=== PATIENT | male | born 1975 | race Caucasian/White ===

== ENCOUNTER 2023-05-24 20:36 | Emergency (ER) | payer BC ==
[2023-05-24 21:09] VITALS: TEMP 98.3
--- NOTE | 2023-05-24 21:12 | ED ---
General Adult HPI - General Source: patient, EMS Mode of arrival: EMS Limitations: no limitations <Tarsha Metzger - Last Filed: 05/24/23 21:13> <Luther Coronado - Last Filed: 05/25/23 03:11> - General Chief complaint: Abdominal Pain Stated complaint: abd pain Time Seen by Provider: 05/24/23 21:05 - History of Present Illness Initial comments: 48-year-old male presents to the emergency department chief complaint abdominal pain. He states that it is in the epigastric region and radiates to the left side. He states this started around 10 PM last night. This is associated with nausea without vomiting. He states that the pain comes in waves. He has not experienced pain like this in the past. He admits to occasional alcohol use. (Tarsha Metzger) This is a 48-year-old male with a past medical history including hyperlipidemia presents emergency department for acute abdominal pain. The patient stated this epigastric abdominal pain began yesterday and has been persistent ever since. The patient stated that the pain is in the epigastric region but also radiates to the other areas of his abdomen. The patient denied any trauma and denied any previous episodes of this pain in the past. The patient stated that he was nauseous but did not vomit. The patient stated that he tried multiple things at home including a Fleet enema as well as multiple other [id number] medications with no relief. The patient denied any other acute pain or complaints at this time but then realized that he did call EMS to be evaluated and that is how he arrived in the emergency department. (Luther Coronado) - Related Data Allergies Allergy/AdvReac Type Severity Reaction Status Date / Time No Known Allergies Allergy Verified 05/24/23 21:08 Review of Systems ROS Other: All systems not noted in ROS Statement are negative. <Tarsha Metzger - Last Filed: 05/24/23 21:13> ROS Other: All systems not noted in ROS Statement are negative. <Luther Coronado - Last Filed: 05/25/23 03:11> ROS Statement: Those systems with pertinent positive or pertinent negative responses have been documented in the HPI. Past Medical History History of Any Multi-Drug Resistant Organisms: None Reported Past Surgical History: Ablation, Appendectomy, Orthopedic Surgery Additional Past Surgical History / Comment(s): lt ankle x 2,rt shoulder, Past Psychological History: No Psychological Hx Reported Smoking Status: Never smoker Past Alcohol Use History: Occasional Past Drug Use History: Marijuana <Tarsha Metzger - Last Filed: 05/24/23 21:13> General Exam Limitations: no limitations <Tarsha Metzger - Last Filed: 05/24/23 21:13> Limitations: no limitations General appearance: alert, in no apparent distress, obese Head exam: Present: atraumatic, normocephalic, normal inspection Eye exam: Present: normal appearance, PERRL Pupils: Present: normal accommodation ENT exam: Present: normal exam, normal oropharynx, mucous membranes moist Neck exam: Present: normal inspection, full ROM Respiratory exam: Present: normal lung sounds bilaterally Cardiovascular Exam: Present: regular rate, normal rhythm, normal heart sounds GI/Abdominal exam: Present: soft, tenderness (TTP in the epigastric region, RLQ, LLQ) Extremities exam: Present: normal inspection, full ROM Back exam: Present: normal inspection, full ROM Neurological exam: Present: alert, oriented X3, CN II-XII intact Psychiatric exam: Present: normal affect, normal mood Skin exam: Present: warm, dry <Luther Coronado - Last Filed: 05/25/23 03:11> - General Exam Comments Initial Comments: Visual Physical Exam Vital signs reviewed General: Well-appearing, nontoxic, no acute distress. Head: Normocephalic, atraumatic Eyes: PERRLA, EOMI ENT: Airway patent Chest: Nonlabored breathing Skin: No visual rash, normal skin tone Neuro: Alert and oriented 3 Musculoskeletal: No gross abnormalities (Tarsha Metzger) Course Vital Signs 05/24/23 05/25/23 21:03 01:11 Temperature 98.3 F Pulse Rate 101 H 77 Respiratory 20 18 Rate Blood Pressure 110/73 107/64 O2 Sat by Pulse 96 97 Oximetry EKG Findings - EKG Comments: EKG Findings:: An EKG was obtained and was interpreted by myself showing a rate of 78, MD interval 146, QRS duration of 93 and QTC of 389. This EKG showed a normal sinus rhythm with no ST segment elevation or depression noted. <Luther Coronado - Last Filed: 05/25/23 03:11> Medical Decision Making <Tarsha Metzger - Last Filed: 05/24/23 21:13> - Lab Data Result diagrams: 05/24/23 21:32 05/24/23 21:32 <Luther Coronado - Last Filed: 05/25/23 03:11> - Medical Decision Making I preformed the quick note portion of this chart. Electronically signed by Tarsha Metzger PA-C (Tarsha Metzger) Was pt. sent in by a medical professional or institution ([facility], [employer], urgent care, hospital, or long term...) When possible be specific @ -No Did you speak to anyone other than the patient for history (EMS, parent, family, police, friend...)? What history was obtained from this source @ -No Did you review nursing and triage notes (agree or disagree)? Why? @ -I reviewed and agree with nursing and triage notes Were old charts reviewed (outside hosp., previous admission, EMS record, old EKG, old radiological studies, urgent care reports/EKG's, long term records)? Report findings @ -No old charts were reviewed Differential Diagnosis (chest pain, altered mental status, abdominal pain women, abdominal pain men, vaginal bleeding, weakness, fever, dyspnea, syncope, headache, dizziness, GI bleed, back pain, seizure, CVA, palpatations, mental health)? @ -Peptic ulcer disease, bowel perforation, diverticulitis EKG interpreted by me (3pts min.). @ -As above X-rays interpreted by me (1pt min.). @ -KUB x-ray was obtained and was interpreted by myself showing findings suspicious for small bowel obstruction. CT interpreted by me (1pt min.). @ -CT abdomen and pelvis with IV contrast was obtained and was interpreted by myself showing evidence of enteritis, mild diffuse low attenuation the right hepatic lobe suggesting hepatic steatosis. 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 There was colonic diverticulosis. The patient denied of any acute tenderness over the spine at L5 did have some mild right- sided flank pain that he stated has been present for months. U/S interpreted by me (1pt. min.). @ -None done What testing was considered but not performed or refused? (CT, X-rays, U/S, labs)? Why? @ -None What meds were considered but not given or refused? Why? @ -None Did you discuss the management of the patient with other professionals (professionals i.e. DrJigna, PA, [employer], lab, RT, psych nurse, neonatal social worker, mushroom cutter, teacher, project control officer, case monitor)? Give summary @ -Yes, transferring team at [facility] was contacted and the patient was ultimately accepted for transfer under Dr. Mclean after confirming with GI Was smoking cessation discussed for >3mins.? @ -No Was critical care preformed (if so, how long)? @ -No Were there social determinants of health that impacted care today? How? (Homelessness, low income, unemployed, alcoholism, drug addiction, transportation, low edu. Level, literacy, decrease access to med. care, half-way, rehab)? @ -No Was there de-escalation of care discussed even if they declined (Discuss DNR or withdrawal of care, Hospice)? DNR status @ -No What co-morbidities impacted this encounter? (DM, HTN, Smoking, COPD, CAD, Cancer, CVA, ARF, Chemo, Hep., AIDS, mental health diagnosis, sleep apnea, morbid obesity)? @ -Hyperlipidemia Was patient admitted / discharged? Hospital course, mention meds given and route, prescriptions, significant lab abnormalities, going to OR and other pertinent info. @ -The patient was seen and evaluated emergency department. Physical exam, the patient was resting in bed in minimal distress secondary to abdominal pain. The patient was given Toradol and Zofran prior to arrival by EMS and he did stated this did improve his pain. Workup was obtained including a white blood cell count of 17 otherwise laboratory workup was within normal limits. Scans were above and the patient likely had enteritis and not a small bowel obstruction as he did have multiple bowel movements today. The patient did have intractable abdominal pain requiring several doses of medications and the patient was offered possible evaluation by GI. There was however no GI coverage in the hospital here therefore did require transfer. Due to the patient's elevated white blood cell count, enteritis on computed tomography scan and intractable abdominal pain, the patient did request to be transferred and he was accepted for transfer to [facility] Dr. Mclean. The patient was transferred in stable condition. Undiagnosed new problem with uncertain prognosis? @ -No Drug Therapy requiring intensive monitoring for toxicity (Heparin, Nitro, Insulin, Cardizem)? @ -No Were any procedures done? @ -No Diagnosis/symptom? @ -Intractable Abdominal pain, enteritis Acute, or Chronic, or Acute on Chronic? @ -Acute Uncomplicated (without systemic symptoms) or Complicated (systemic symptoms)? @ -Complicated Side effects of treatment? @ -No Exacerbation, Progression, or Severe Exacerbation? @ -No Poses a threat to life or bodily function? How? (Chest pain, USA, PA, pneumonia, PE, COPD, DKA, ARF, appy, cholecystitis, CVA, Diverticulitis, Homicidal, Suicidal, threat to staff... and all critical care pts) @ -No (Luther Coronado) - Lab Data Lab Results 05/24/23 05/24/23 05/24/23 Range/Units 21:32 21:32 21:32 WBC 17.0 H (3.8-10.6) k/uL RBC 5.65 (4.30-5.90) m/uL Hgb 17.6 H (13.0-17.5) gm/dL Hct 52.1 (39.0-53.0) % MCV 92.3 (80.0-100.0) fL MCH 31.2 (25.0-35.0) pg MCHC 33.8 (31.0-37.0) g/dL RDW 12.3 (11.5-15.5) % Plt Count 340 (150-450) k/uL MPV 6.8 Neutrophils % 90 % Lymphocytes % 5 % Monocytes % 5 % Eosinophils % 0 % Basophils % 0 % Neutrophils # 15.3 H (1.3-7.7) k/uL Lymphocytes # 0.8 L (1.0-4.8) k/uL Monocytes # 0.8 (0-1.0) k/uL Eosinophils # 0.0 (0-0.7) k/uL Basophils # 0.0 (0-0.2) k/uL Sodium 134 L (137-145) mmol/L Potassium 5.0 (3.5-5.1) mmol/L Chloride 99 (98-107) mmol/L Carbon Dioxide 25 (22-30) mmol/L Anion Gap 10 mmol/L BUN 17 (9-20) mg/dL Creatinine 1.26 H (0.66-1.25) mg/dL Est GFR (CKD-EPI)AfAm 77 (>60 ml/min/1.73 sqM) Est GFR (CKD-EPI)NonAf 67 (>60 ml/min/1.73 sqM) Glucose 146 H (74-99) mg/dL Plasma Lactic Acid Ru 1.3 (0.7-2.0) mmol/L Calcium 9.6 (8.4-10.2) mg/dL Total Bilirubin 1.0 (0.2-1.3) mg/dL AST 36 (17-59) U/L ALT 39 (4-49) U/L Alkaline Phosphatase 47 (38-126) U/L Total Protein 7.5 (6.3-8.2) g/dL Albumin 4.5 (3.5-5.0) g/dL Amylase 40 (30-110) U/L Lipase 49 (23-300) U/L Urine Color Urine Appearance (Clear) Urine pH (5.0-8.0) Ur Specific Palmer (1.001-1.035) Urine Protein (Negative) Urine Glucose (UA) (Negative) Urine Ketones (Negative) Urine Blood (Negative) Urine Nitrite (Negative) Urine Bilirubin (Negative) Urine Urobilinogen (<2.0) mg/dL Ur Leukocyte Esterase (Negative) Urine RBC (0-5) /hpf Urine WBC (0-5) /hpf Ur Squamous Epith Cells (0-4) /hpf Urine Bacteria (None) /hpf Hyaline Casts (0-2) /lpf Urine Mucus (None) /hpf 05/24/23 Range/Units 23:00 WBC (3.8-10.6) k/uL RBC (4.30-5.90) m/uL Hgb (13.0-17.5) gm/dL Hct (39.0-53.0) % MCV (80.0-100.0) fL MCH (25.0-35.0) pg MCHC (31.0-37.0) g/dL RDW (11.5-15.5) % Plt Count (150-450) k/uL MPV Neutrophils % % Lymphocytes % % Monocytes % % Eosinophils % % Basophils % % Neutrophils # (1.3-7.7) k/uL Lymphocytes # (1.0-4.8) k/uL Monocytes # (0-1.0) k/uL Eosinophils # (0-0.7) k/uL Basophils # (0-0.2) k/uL Sodium (137-145) mmol/L Potassium (3.5-5.1) mmol/L Chloride (98-107) mmol/L Carbon Dioxide (22-30) mmol/L Anion Gap mmol/L BUN (9-20) mg/dL Creatinine (0.66-1.25) mg/dL Est GFR (CKD-EPI)AfAm (>60 ml/min/1.73 sqM) Est GFR (CKD-EPI)NonAf (>60 ml/min/1.73 sqM) Glucose (74-99) mg/dL Plasma Lactic Acid Ru (0.7-2.0) mmol/L Calcium (8.4-10.2) mg/dL Total Bilirubin (0.2-1.3) mg/dL AST (17-59) U/L ALT (4-49) U/L Alkaline Phosphatase (38-126) U/L Total Protein (6.3-8.2) g/dL Albumin (3.5-5.0) g/dL Amylase (30-110) U/L Lipase (23-300) U/L Urine Color Yellow Urine Appearance Clear (Clear) Urine pH 6.0 (5.0-8.0) Ur Specific Palmer >1.050 H (1.001-1.035) Urine Protein 1+ H (Negative) Urine Glucose (UA) Negative (Negative) Urine Ketones Negative (Negative) Urine Blood Negative (Negative) Urine Nitrite Negative (Negative) Urine Bilirubin Negative (Negative) Urine Urobilinogen 2.0 (<2.0) mg/dL Ur Leukocyte Esterase Negative (Negative) Urine RBC 3 (0-5) /hpf Urine WBC 2 (0-5) /hpf Ur Squamous Epith Cells 1 (0-4) /hpf Urine Bacteria Rare H (None) /hpf Hyaline Casts 2 (0-2) /lpf Urine Mucus Many H (None) /hpf Disposition <Tarsha Metzger - Last Filed: 05/24/23 21:13> Is patient prescribed a controlled substance at d/c from ED?: No Time of Disposition: 01:00 - Out of Hospital Transfer - Req. Specs Out of Hospital Transfer - Requested Specifics: Other Emergency Center ([facility]) <Luther Coronado - Last Filed: 05/25/23 03:11> Clinical Impression: Intractable abdominal pain, Enteritis Disposition: OTHER INSTITUTION NOT DEFINED Condition: Stable Referrals: Nonstaff,Physician [REFERRING] - 1-2 days
[2023-05-24 22:03] LABS: Basophils % (A) 0 %; Eosinophils % (A) 0 %; HCT 52.1 % (39.0-53.0); HGB 17.6 gm/dL (13.0-17.5); Lymphocytes # (A) 0.8 k/uL (1.0-4.8); Lymphocytes % (A) 5 %; MCH 31.2 pg (25.0-35.0); MCHC 33.8 g/dL (31.0-37.0); MCV 92.3 fL (80.0-100.0); Mean Platelet Volume 6.8; Monocytes # (A) 0.8 k/uL (0-1.0); Monocytes % (A) 5 %; Neutrophils # (A) 15.3 k/uL (1.3-7.7); Neutrophils % (A) 90 %; Platelet Count 340 k/uL (150-450); RBC 5.65 m/uL (4.30-5.90); RDW 12.3 % (11.5-15.5)
[2023-05-24] MEDS ORDERED: MAG HYDROX/AL HYDROX/SIMETH 30 ML, HYOSCYAMINE ELIXIR 10 ML, LIDOCAINE 2% GLYDO JELLY 1... PO STA ×3 (22:13)
[2023-05-24] MEDS ORDERED: FAMOTIDINE 20 MG/2 ML VIAL IV STA (22:13)
[2023-05-24 22:17] LABS: ALT 39 U/L (4-49); AST 36 U/L (17-59); African American GFR (CKD) 77 (>60 ml/min/1.73 sqM); Albumin 4.5 g/dL (3.5-5.0); Alkaline Phosphatase 47 U/L (38-126); Amylase 40 U/L (30-110); Anion Gap 10 mmol/L; Blood Urea Nitrogen 17 mg/dL (9-20); Calcium 9.6 mg/dL (8.4-10.2); Carbon Dioxide 25 mmol/L (22-30); Chloride 99 mmol/L (98-107); Glucose 146 mg/dL (74-99); Lipase 49 U/L (23-300); Non-African American GFR(CKD) 67 (>60 ml/min/1.73 sqM); Sodium 134 mmol/L (137-145); Total Protein 7.5 g/dL (6.3-8.2)
[2023-05-24 23:26] LABS: Appearance,Urine Clear (Clear); Bacteria,Urine Rare /hpf; Bilirubin,Urine Negative (Negative); Blood,Urine Negative (Negative); Color,Urine Yellow; Glucose,Urine (UA) Negative (Negative); Hyaline Casts,Urine 2 /lpf (0-2); Ketones,Urine Negative (Negative); Leukocyte Esterase,Urine Negative (Negative); Mucus,Urine Many /hpf; Nitrite,Urine Negative (Negative); Protein,Urine 1+ (Negative); RBC,Urine 3 /hpf (0-5); Squamous Epithelial Cell,Urine 1 /hpf (0-4); WBC,Urine 2 /hpf (0-5)
[2023-05-24 23:55] LABS: Specific Gravity,Urine >1.050 (1.001-1.035)
--- NOTE | 2023-05-25 00:14 | XR ---
EXAM: XR Abdomen, 2 Views CLINICAL HISTORY: ITS.REASON XR Reason: Abdominal pain TECHNIQUE: Frontal view of the abdomen/pelvis with upright view of the abdomen. COMPARISON: No relevant prior studies available. FINDINGS: Intraperitoneal space: No free air. Gastrointestinal tract: Dilated loops of small bowel with air-fluid levels. Bones/joints: No acute osseous abnormality. IMPRESSION: Findings suspicious for small bowel obstruction.
--- NOTE | 2023-05-25 00:41 | CT ---
EXAM: CT Abdomen and Pelvis With Intravenous Contrast CLINICAL HISTORY: ITS.REASON CT Reason: Acute abdominal pain TECHNIQUE: Axial computed tomography images of the abdomen and pelvis with intravenous contrast. CTDI is 25.6 mGy and DLP is 1371.2 mGy-cm. This CT exam was performed using one or more of the following dose reduction techniques: automated exposure control, adjustment of the mA and/or kV according to patient size, and/or use of iterative reconstruction technique. COMPARISON: No relevant prior studies available. FINDINGS: ABDOMEN: Liver: Mild diffuse low-attenuation in the right hepatic lobe suggesting hepatic steatosis. Gallbladder and bile ducts: Unremarkable. No calcified stones. No ductal dilation. Pancreas: Unremarkable. No mass. No ductal dilation. Spleen: Unremarkable. No splenomegaly. Adrenals: Unremarkable. No mass. Kidneys and ureters: Unremarkable. No solid mass. No hydronephrosis. Stomach and bowel: Multiple mildly dilated loops of small bowel. There is some segmental wall thickening in the distal ileum. Colonic diverticulosis. PELVIS: Appendix: No findings to suggest acute appendicitis. Bladder: Unremarkable. No mass. Reproductive: Unremarkable as visualized. ABDOMEN and PELVIS: Intraperitoneal space: Small amount of free fluid in the pelvis. No free air. Bones/joints: Degenerative changes in the hips. Bilateral pars interarticularis defects at L5. No acute fracture. No dislocation. Soft tissues: There is some mild mesenteric edema. Vasculature: Unremarkable. No abdominal aortic aneurysm. Lymph nodes: Unremarkable. No enlarged lymph nodes. IMPRESSION: 1. Evidence of enteritis. 2. Mild diffuse low-attenuation in the right hepatic lobe suggesting hepatic steatosis. 3. Bilateral pars interarticularis defects at L5. 4. Colonic diverticulosis.
[2023-05-25] MEDS ORDERED: KETOROLAC 15 MG/ML 1 ML VIAL IVP STA (01:21)
[2023-05-25 01:32] VITALS: BP 107/64; PULSE 77; RESP 18
== END 2023-05-25 03:43 | disposition other institution (70) ==
LOC: EC 20:36
DX: K52.9 Noninfective gastroenteritis and colitis, unspecified (principal); K57.30 Diverticulosis of large intestine without perforation or abscess without bleeding; F12.90 Cannabis use, unspecified, uncomplicated; Z90.49 Acquired absence of other specified parts of digestive tract
CPT/HCPCS: 36415; 93005; 80053; 82150; 83605; 83690; 85025; 81001; 74018; 74177; 99285; 96374; 96375; J3490; J1885; Q9967